=== PATIENT | male | born 1975 | race Caucasian/White ===

== ENCOUNTER 2021-02-13 08:39 | Day surgery (SDC) | payer OTHER ==
[2021-02-13] MEDS ORDERED: Boostrix 0.5 ML (Tdap) VIAL ONE (08:43)
[2021-02-13] MEDS ORDERED: Tranexamic Acid 1,000 MG/10 ML VIAL ONE (08:50)
[2021-02-13] MEDS ORDERED: Ketamine 50 MG/ML (10ML VIAL) ONE (08:56)
[2021-02-13] MEDS ORDERED: Fentanyl 250 MCG/5 ML VIAL ONE (09:07)
[2021-02-13] MEDS ORDERED: Phenylephrine 10 MG/ML VIAL ONE (09:08)
[2021-02-13 09:09] LABS: #Eosinphils 0.1 thou/uL (0.0-0.7); #Lymphocytes 2.1 thou/uL (1.20-3.40); #Neutrophils 16.3 thou/uL (1.40-6.50); %Basophils 0.2 % (0.0-1.0); %Eosinophils 0.3 % (0.0-10.0); %Lymphocytes 10.5 % (21.0-51.0); %Monocytes 5.3 % (0.0-10.0); %Neutrophils 83.7 % (42.0-75.0); Hemoglobin 13.4 g/dL (14.0-18.0); Mean Corpuscular HGB CONC 31.9 g/dL (32.0-36.0); Mean Corpuscular Volume 90.9 fL (78.0-98.0); Mean Platelet Volume 7.5 fL (7.4-10.4); Platelet Count 290 thou/uL (130-400); RBC Distribution Width 12.7 % (11.5-14.5); Red Blood Cell (RBC) Count 4.62 mill/uL (4.70-6.10); White Blood Cell (WBC) Count 19.4 thou/uL (4.8-10.8)
[2021-02-13] MEDS ORDERED: Iopamidol-370 76% 500 ML 1 ML ONE ×2 (09:10→11:53)
[2021-02-13] MEDS ORDERED: Dexamethasone 20 MG/5 ML VIAL ONE (09:24)
[2021-02-13] MEDS ORDERED: PROPOFOL 200 MG/20 ML VIAL ONE (09:24)
[2021-02-13] MEDS ORDERED: Lidocaine 1% PF 5 ML VIAL ONE (09:24)
[2021-02-13] MEDS ORDERED: Glycopyrrolate 0.2 MG/ML 5 ML SYRINGE ONE (09:24)
[2021-02-13] MEDS ORDERED: PHENYLEPHRINE-NS 100 MCG/ML 10 ML SYRINGE ONE (09:24)
[2021-02-13] MEDS ORDERED: ePHEDrine 50 MG/ML VIAL ONE (09:24)
[2021-02-13] MEDS ORDERED: Ondansetron PF 4 MG/2 ML Vial ONE (09:24)
[2021-02-13] MEDS ORDERED: Succinylcholine 200 MG/10 ml SYRINGE FS ONE (09:24)
[2021-02-13] MEDS ORDERED: Rocuronium Bromide 10 MG/ML (10ML VIAL) ONE (09:24)
[2021-02-13] MEDS ORDERED: Neomycin-Polymyxin 1 ML AMP ONE (09:26)
[2021-02-13 09:30] LABS: Albumin 3.2 g/dL (3.5-5.0)
[2021-02-13 09:31] LABS: Chloride 107 mmol/L (98-107); Potassium 4.8 mmol/L (3.5-5.1); Sodium 134 mmol/L (136-145)
[2021-02-13] MEDS ORDERED: Morphine 4 MG/ML VIAL SLOW IVP PRN (09:31)
[2021-02-13] MEDS ORDERED: Ondansetron PF 4 MG/2 ML Vial IVP PRN ×2 (09:31→12:26)
[2021-02-13] MEDS ORDERED: Dextrose 50% Abboject 50 ML SYRINGE SLOW IVP PRN (09:31)
[2021-02-13] MEDS ORDERED: Dextrose 5% in Water 1,000 ML IV PRN (09:31)
[2021-02-13] MEDS ORDERED: Morphine 2 MG/ML VIAL SLOW IVP PRN (09:31)
[2021-02-13 09:32] LABS: Calcium 7.6 mg/dL (7.8-10.44); Globulin 2.7 g/dL (2.4-3.5); Protein, Total 5.9 g/dL (6.0-8.3)
[2021-02-13 09:34] LABS: Anion Gap 18 mmol/L (10-20); Bilirubin, Total 0.3 mg/dL (0.2-1.2); Carbon Dioxide 14 mmol/L (22-29)
[2021-02-13 09:35] LABS: Alkaline Phosphatase 59 U/L (40-110)
[2021-02-13 09:36] LABS: BUN (Urea Nitrogen) 13 mg/dL (8.9-20.6); Calc. Creatinine Clearance 0 mL/min (70-130)
[2021-02-13 09:37] LABS: AST (SGOT) 188 U/L (5-34)
[2021-02-13 09:38] LABS: ALT (SGPT) 127 U/L (8-55); Lipase 16 U/L (8-78)
[2021-02-13 09:40] LABS: Glucose 226 mg/dL (70-105)
[2021-02-13] MEDS ORDERED: Sodium Chloride 0.9% 1,000 ML IV SCH (09:45)
[2021-02-13] MEDS ORDERED: Promethazine HCl 25 MG/ML VIAL IM PRN (11:36)
[2021-02-13] MEDS ORDERED: Ondansetron HCl/PF 4 MG/2 ML Vial IVP PRN (11:36)
[2021-02-13] MEDS ORDERED: Promethazine HCl 25 MG/ML VIAL IVPB PRN (11:36)
[2021-02-13] MEDS ORDERED: HYDROmorphone 2 MG/ML VIAL SLOW IVP PRN (11:36)
[2021-02-13] MEDS ORDERED: Cyclobenzaprine 10 MG TAB PO PRN (12:26)
[2021-02-13] MEDS ORDERED: Acetaminophen 500 MG TAB PO SCH (12:30)
[2021-02-13] MEDS ORDERED: traMADol HCl 50 MG TAB PO SCH (12:30)
[2021-02-13] MEDS ORDERED: Fentanyl 100 MCG/2 ML VIAL ONE ×2 (13:01→14:04)
[2021-02-13 13:05] LABS: SARS-CoV-2 NAA Rapid Test Not Detected (NotDetected)
[2021-02-13 13:57] LABS: INR-International Normal Ratio 1.1; PTT 24.1 sec (22.9-36.1); Prothrombin Time 14.7 sec (12.0-14.7)
[2021-02-13 14:12] LABS: Magnesium 1.6 mg/dL (1.6-2.6); Phosphorus 3.8 mg/dL (2.3-4.7)
[2021-02-13 14:32] LABS: Hemoglobin 9.9 g/dL (14.0-18.0); Mean Corpuscular HGB CONC 32.7 g/dL (32.0-36.0); Mean Corpuscular Hemoglobin 29.7 pg (27.0-31.0); Mean Corpuscular Volume 90.7 fL (78.0-98.0); Mean Platelet Volume 7.1 fL (7.4-10.4); Platelet Count 213 thou/uL (130-400); RBC Distribution Width 12.5 % (11.5-14.5); Red Blood Cell (RBC) Count 3.34 mill/uL (4.70-6.10); White Blood Cell (WBC) Count 20.3 thou/uL (4.8-10.8)
[2021-02-13 14:42] LABS: Lactic Acid 4.6 mmol/L (0.5-2.2)
[2021-02-13] MEDS ORDERED: Gabapentin 300 MG CAP PO SCH (15:00)
[2021-02-13] MEDS ORDERED: Morphine 2 MG/ML VIAL ONE ×2 (15:58→16:18)
[2021-02-13] MEDS ORDERED: Ketorolac Tromethamine 30 MG/ML VIAL IVP SCH (18:00)
[2021-02-13] MEDS ORDERED: Senokot S 8.6-50 MG TAB PO SCH (21:00)
[2021-02-13] MEDS ORDERED: Famotidine 20 MG TAB PO SCH (21:00)
[2021-02-14] MEDS ORDERED: Polyethylene Glycol 3350 17 GM Packet PO SCH (09:00)
== END 2021-02-13 17:03 | disposition short-term general hospital (02) ==
LOC: ERS 08:39 → SDC 09:18
PROVIDERS: ATTEND Specialist
PROC: 0QBG0ZZ Excision of Right Tibia, Open Approach (ICD-10-PCS; principal; 2021-02-13)
PROC: 0QSCXZZ Reposition Left Lower Femur, External Approach (ICD-10-PCS; principal; 2021-02-13)
PROC: 0QSL05Z Reposition Right Tarsal with External Fixation Device, Open Approach (ICD-10-PCS; principal; 2021-02-13)
PROC: 0QSC35Z Reposition Left Lower Femur with External Fixation Device, Percutaneous Approach (ICD-10-PCS; principal; 2021-02-13)
PROC: 0QSGXZZ Reposition Right Tibia, External Approach (ICD-10-PCS; principal; 2021-02-13)
DX: S82.451B Displaced comminuted fracture of shaft of right fibula, initial encounter for open fracture type I or II (principal); S82.51XB Displaced fracture of medial malleolus of right tibia, initial encounter for open fracture type I or II; S82.031A Displaced transverse fracture of right patella, initial encounter for closed fracture; S72.492B Other fracture of lower end of left femur, initial encounter for open fracture type I or II; S42.202A Unspecified fracture of upper end of left humerus, initial encounter for closed fracture; S82.831A Other fracture of upper and lower end of right fibula, initial encounter for closed fracture; S27.0XXA Traumatic pneumothorax, initial encounter; S22.43XA Multiple fractures of ribs, bilateral, initial encounter for closed fracture; S92.144A Nondisplaced dome fracture of right talus, initial encounter for closed fracture; I26.99 Other pulmonary embolism without acute cor pulmonale; S25.00XA Unspecified injury of thoracic aorta, initial encounter; S30.0XXA Contusion of lower back and pelvis, initial encounter; G89.11 Acute pain due to trauma; I95.9 Hypotension, unspecified; I10 Essential (primary) hypertension; Z79.899 Other long term (current) drug therapy; Z20.822 Contact with and (suspected) exposure to COVID-19; V43.52XA Car driver injured in collision with other type car in traffic accident, initial encounter
CPT/HCPCS: 36415; 36430; 70450; 71045; 71260; 71275; 72125; 72170; 74177; 76000; 80053; 80307; 82550; 83605; 83690; 83735; 84100; 85025; 85610; 85730; 86850; 86900; 86901; 90715; C1713; G0390; J0690; J1100; J2270; J2370; J2405; J2704; J3010; J3490; P9016; P9048; Q9967; U0002